=== PATIENT | female | born 1960 | race Caucasian/White ===

== ENCOUNTER → 2019-11-26 11:14 | Outpatient (CLI) | payer BC, SELFPAY ==
--- NOTE | ~2019-11-26 | DEXA_ITS ---
Bone Density Report Name: Soraya García Age: 59 Sex: Female Ethnicity: White Date of : 1960 Indication: postmenopausal; screening for osteoporosis; parental hip fracture; Referring Provider: LANE, JORDAN Study: Bone densitometry was performed. Exam Date: November 26, 2019 Accession number: [id number] Bone Density: Region BMD T-score Z-score Classification AP Spine (L1-L4) 1.129 0.7 2.1 Normal Femoral Neck (Left) 0.800 -0.4 0.8 Normal Total Hip (Left) 1.063 1.0 1.9 Normal Femoral Neck (Right) 0.822 -0.2 1.0 Normal Total Hip (Right) 1.046 0.9 1.7 Normal Total Hip Mean 1.055 1.0 1.8 Normal World Health Organization criteria for BMD impression classify patients as: Normal (T-score at or above -1.0), Osteopenia (T-score between -1.0 and -2.5), or Osteoporosis (T-score at or below -2.5). 10-year Fracture Risk: FRAX not reported because: All T-scores for Spine Total, Hip Total, Femoral Neck at or above -1.0 Previous Exams: Region Exam Age BMD T-score BMD Change BMD Change Date g/cm2 vs Baseline vs Previous AP Spine(L1-L4) 11/26/2019 59 1.129 0.7 -0.075* -0.075* 07/17/2015 54 1.204 1.4 Total Hip(Left) 11/26/2019 59 1.063 1.0 -0.021 -0.021 07/17/2015 54 1.085 1.2 Total Hip(Right) 11/26/2019 59 1.046 0.9 0.006 0.006 07/17/2015 54 1.040 0.8 *Denotes significance at 95% confidence level, LSC for AP Spine = 0.022 g/cm2, LSC for Total Hip = 0.027 g/cm2 Clinical Information Provided by Patient: Parent has had a hip fracture Has used the following medications: Vitamin D Patient maximum height was 64.6 Menopause Age: 54 No regular weight bearing exercise Drinks caffeinated beverages Onset of menses at age 10 Number of children 5 Missed period for more than 6 months in a row Impression: The patient has normal bone mass. The patient has risk factors, including: parental hip fracture. The BMD for the AP Spine(L1-L4) decreased, changing by -0.075 since the last DXA exam. Discussion: BONE DENSITY IS ABOVE THE MINIMUM DESIRABLE LEVEL AT ALL SKELETAL SITES TESTED. This patient?s bone mineral density is above the minimum desirable level (T-score -1.0 or better) at all sites measured. The patient should follow a healthful lifestyle (good nutrition with adequate calcium and vitamin D, and appropriate weight-bearing exercise). Follow-Up: Consider repeating
== END ==
PROVIDERS: PCP Internal Medicine; Visit Provider Nurse Practitioner
DX: Z78.0 Asymptomatic menopausal state (principal)
CPT/HCPCS: 77080